=== PATIENT | female | born 1960 | race Hispanic/Latino ===

== ENCOUNTER 2017-10-29 15:16 | Inpatient (IN) | payer MEDICARE ==
[~2017-10-29] VITALS: Ht 160 cm; Wt 88.2 kg
[2017-10-29 16:01] LABS: BASOPHILS % (AUTO) 0.4 % (0.0-5.0); EOSINOPHILS % (AUTO) 0.3 % (0.0-8.0); HEMATOCRIT 41.6 % (36-48); LYMPHOCYTES % (AUTO) 7.3 % (21.0-51.0); MEAN CORPUSCULAR HEMOGLOBIN 25.8 pg (27.0-33.0); MEAN CORPUSCULAR HGB CONC 33.5 g/dL (32.0-36.0); MEAN CORPUSCULAR VOLUME 77.1 fL (79-99); MONOCYTES % (AUTO) 7.3 % (3.0-13.0); NEUTROPHILS % (AUTO) 84.7 % (40.0-77.0); NUCLEATED RED BLOOD CELLS 0.1 % (0.0-0.19); PLATELET COUNT (AUTO) 269 K/uL (130-400); RED CELL DISTRIBUTION WIDTH 15.9 % (11.0-15.5); WHITE BLOOD COUNT (AUTO) 8.3 K/uL (4.8-10.8)
[2017-10-29] MEDS ORDERED: SODIUM CHLORIDE 0.9% 1000ML 3,000 ML IV ONE (16:01)
[2017-10-29] MEDS ORDERED: ONDANSETRON HCL 4 MG/2 ML VIAL ONE (16:01)
[2017-10-29 16:13] LABS: CARBON DIOXIDE 31 mmol/L (21-32); CHLORIDE 99 mmol/L (101-111); CREATININE 1.2 mg/dL (0.5-1.5); GLOMERULAR FILTR. RATE CALC 49 mL/min (>60); GLUCOSE,RANDOM 127 mg/dL (70-105); POTASSIUM 3.6 mmol/L (3.5-5.1); SODIUM SERUM 138 mmol/L (136-145); UREA NITROGEN, BLOOD 11 mg/dL (7-18)
[2017-10-29 16:16] LABS: INR 0.99 (0.85-1.15); PARTIAL THROMBOPLASTIN TIME 26.8 SEC (26.3-35.5); PROTHROMBIN TIME 10.4 SEC (9.6-11.6)
[2017-10-29] MEDS ORDERED: CEFTRIAXONE SODIUM 2 GM VIAL ONE (16:19)
[2017-10-29] MEDS ORDERED: SODIUM CHLORIDE 0.9% 50 ML IV ONE (16:19)
[2017-10-29 16:21] LABS: APPEARANCE,URINE Clear (CLEAR); BILIRUBIN,URINE Negative (NEGATIVE); COLOR,URINE Yellow (YELLOW); GLUCOSE, URINE (UA) >=1000 mg/dL (NEGATIVE); KETONES,URINE 15 mg/dL (NEGATIVE); LEUKOCYTE ESTERASE ,URINE Negative (NEGATIVE); NITRATE,URINE Negative (NEGATIVE); OCCULT BLOOD,URINE Negative (NEGATIVE); PROTEIN,URINE Negative (NEGATIVE)
[2017-10-29 16:28] LABS: ALANINE AMINOTRANSFERASE 78 U/L (12-78); ALBUMIN 4.2 g/dL (3.5-5.0); ASPARTATE AMINOTRANSFERASE 57 U/L (10-37); BILIRUBIN,TOTAL 0.4 mg/dL (0.2-1.0); CREATINE KINASE MB 0.9 ng/mL (0.5-3.6); CREATINE KINASE, TOTAL 138 U/L (21-232); MYOGLOBIN 84 ng/mL (10-92); TOTAL PROTEIN, SERUM 8.5 g/dL (6.0-8.3); TROPONIN I < 0.04 ng/mL (0.00-0.06)
[2017-10-29 16:31] LABS: BACTERIA,URINE None Seen /HPF (None Seen); RBC,URINE None Seen /HPF (0-1)
[2017-10-29 16:44] LABS: RAPID GROUP A STREP NEGATIVE (NEGATIVE)
[2017-10-29] MEDS ORDERED: SODIUM CHLORIDE 0.9% 1000ML 1,000 ML IV ONE (18:31)
[2017-10-29 20:30] VITALS: BP 119/59
[2017-10-29] MEDS: AZITHROMYCIN 500MG+NS 250ML 250 ML IV SCH (22:10)
[2017-10-29 23:10] VITALS: BP 112/60
[2017-10-30 03:52] VITALS: BP 116/69
[2017-10-30 05:27] LABS: HEMATOCRIT 37.6 % (36-48); MEAN CORPUSCULAR HEMOGLOBIN 25.2 pg (27.0-33.0); MEAN CORPUSCULAR HGB CONC 32.1 g/dL (32.0-36.0); MEAN CORPUSCULAR VOLUME 78.5 fL (79-99); PLATELET COUNT (AUTO) 218 K/uL (130-400); RED BLOOD CELL COUNT(AUTO) 4.79 MIL/uL (4.00-5.50); WHITE BLOOD COUNT (AUTO) 6.2 K/uL (4.8-10.8)
[2017-10-30 05:35] LABS: CREATININE 1.1 mg/dL (0.5-1.5); POTASSIUM 3.5 mmol/L (3.5-5.1)
[2017-10-30 07:52] VITALS: BP 112/71
[2017-10-30 11:15] VITALS: BP 114/76
[2017-10-30] MEDS ORDERED: ACETAMINOPHEN 325 MG TAB PO PRN (11:45)
[2017-10-30] MEDS: IPRATROPIUM/ALBUTEROL SULFATE 3 ML SOLUTION IH SCH ×3 (13:39→22:18)
[2017-10-30] MEDS ORDERED: PRAV10TA39 PO (15:37)
[2017-10-30] MEDS ORDERED: MULT-379 PO (15:37)
[2017-10-30] MEDS ORDERED: METF10004 PO (15:37)
[2017-10-30] MEDS ORDERED: LOSA1TAB42 PO (15:37)
[2017-10-30] MEDS ORDERED: GLIP5TAB11 PO (15:37)
[2017-10-30] MEDS ORDERED: CHOL200013 PO (15:37)
[2017-10-30] MEDS ORDERED: DOXE25CA3 PO (15:37)
[2017-10-30] MEDS ORDERED: FLUO40CA49 PO (15:37)
[2017-10-30] MEDS ORDERED: DIPH25CA7 PO (15:37)
[2017-10-30] MEDS ORDERED: ALPR0.255 PO (15:37)
[2017-10-30] MEDS ORDERED: CLOP75TA32 PO (15:37)
[2017-10-30] MEDS ORDERED: GABA-533 PO (15:37)
[2017-10-30] MEDS ORDERED: OMEP40CA37 PO (15:37)
[2017-10-30] MEDS ORDERED: EMPA25TA PO (15:37)
[2017-10-30 16:19] VITALS: BP 114/70
[2017-10-30] MEDS: CEFTRIAXONE SODIUM 1 GM IVP SCH (16:25)
[2017-10-30 20:00] VITALS: BP 118/72
[2017-10-30] MEDS: AZITHROMYCIN 500MG+NS 250ML 250 ML IV SCH (20:32)
[2017-10-31] VITALS: BP 122/76
[2017-10-31] MEDS: IPRATROPIUM/ALBUTEROL SULFATE 3 ML SOLUTION IH SCH ×3 (02:19→09:20)
[2017-10-31 04:00] VITALS: BP 120/78
[2017-10-31 05:10] LABS: BASOPHILS % (AUTO) 0.5 % (0.0-5.0); EOSINOPHILS % (AUTO) 0.9 % (0.0-8.0); HEMATOCRIT 36.7 % (36-48); LYMPHOCYTES % (AUTO) 32.8 % (21.0-51.0); MEAN CORPUSCULAR HEMOGLOBIN 26.2 pg (27.0-33.0); MEAN CORPUSCULAR HGB CONC 33.6 g/dL (32.0-36.0); MONOCYTES % (AUTO) 9.3 % (3.0-13.0); NEUTROPHILS % (AUTO) 56.5 % (40.0-77.0); NUCLEATED RED BLOOD CELLS 0.1 % (0.0-0.19); PLATELET COUNT (AUTO) 233 K/uL (130-400); RED BLOOD CELL COUNT(AUTO) 4.71 MIL/uL (4.00-5.50); RED CELL DISTRIBUTION WIDTH 16.1 % (11.0-15.5); WHITE BLOOD COUNT (AUTO) 5.5 K/uL (4.8-10.8)
[2017-10-31 05:20] LABS: POTASSIUM 3.3 mmol/L (3.5-5.1)
[2017-10-31 08:00] VITALS: BP 128/88
[2017-10-31 11:20] VITALS: BP 148/93
[2017-10-31] MEDS: CEFTRIAXONE SODIUM 1 GM IVP SCH (12:07)
[2017-10-31] MEDS: AZITHROMYCIN 500MG+NS 250ML 250 ML IV SCH (12:08)
== END 2017-10-31 16:37 | disposition home or self-care (01) | DRG 153 ==
LOC: EDH 15:16 → EDHIP 17:27 → 3AH 20:42
PROVIDERS: ADMIT Internal Medicine Nephrology; ATTEND Internal Medicine Nephrology
DX: J06.9 Acute upper respiratory infection, unspecified (principal); K76.0 Fatty (change of) liver, not elsewhere classified; E11.9 Type 2 diabetes mellitus without complications; E86.0 Dehydration; I10 Essential (primary) hypertension; F32.9 Major depressive disorder, single episode, unspecified; J40 Bronchitis, not specified as acute or chronic; Z96.652 Presence of left artificial knee joint; Z90.710 Acquired absence of both cervix and uterus; Z88.8 Allergy status to other drugs, medicaments and biological substances
CPT/HCPCS: 36415; 71045; 80048; 80053; 81001; 82550; 82553; 82948; 83605; 83874; 84484; 85025; 85027; 85610; 85730; 87040; 87088; 87633; 87804; 87880; 93005; 94640; 94664; A4218; J0456; J0696; J2405; J7030

== ENCOUNTER → 2021-08-25 | Outpatient (CLI) | payer OTHER, MEDICARE ==
[~2021-08-25] MED LIST: ALPR0.255 PO; CHOL200013 PO; CLOP75TA32 PO; DIPH25CA53 PO; EMPA25TA PO; FLUO40CA49 PO; GABA-533 PO; LOSA1TAB42 PO; METF-446 PO; METO50TA18 PO; MULT-379 PO; OMEP40CA21 PO; PRAV10TA39 PO
== END | disposition home or self-care (01) ==
LOC: RAH 09:18
PROVIDERS: ATTEND Internal Medicine Cardiovascular Disease
DX: I70.0 Atherosclerosis of aorta (principal)
CPT/HCPCS: 76775